=== PATIENT | female | born 1985 | race Caucasian/White ===

== ENCOUNTER 2018-01-17 22:53 | Emergency (ER) | payer OTHER ==
[~2018-01-17] VITALS: Ht 165.1 cm; Wt 108.9 kg
[~2018-01-17 22:53] MED LIST: AMOXICILLIN875 MG PO; ARMOUR THYROID15 M1; BACTRIM DS TAB1 EACH PO; EXCEDRIN ASA F1 EAC1; IBUPROFEN 800800 M1 PO; IBUPROFEN 800800 MG PO; MEDROL DOSPAK21 TA1 PO; NAPROSYN500 MG PO; NOHOMEMEDICATIONS; OSELB75 PO; PERCOCET 5-3251 EACH PO; PHENERGAN25 M2 RE; PROMETHAZINE12.5 M1 PO; TRAMADOL 50 MG50 MG PO; ULTRAM 50MG TAB50 MG PO; ULTRAM50 MG PO; VALIUM5 MG PO; VENTOLIN HFA 1818 GM INH; ZPAK PO
[2018-01-17] MEDS ORDERED: ADVAIR HFA 230M12 GM INH (23:15)
[2018-01-17 23:31] LABS: ABSOLUTE LYMPHOCYTES 1.2 thou/uL (0.8-5.3); ABSOLUTE MONOCYTES 0.4 thou/uL (0.0-1.2); ABSOLUTE NEUTROPHILS 4.1 thou/uL (1.6-8.1); BASOPHILS 0.7 %; EOSINOPHILS 0.6 %; HEMATOCRIT 39.5 % (37.0-47.0); HEMOGLOBIN 12.9 gm/dL (12.0-15.0); MCH 27.9 pg (26.0-34.0); MCHC 32.6 g/dL (28.0-37.0); MCV 85.5 fL (80.0-100.0); MONOCYTES 6.3 %; MPV 7.8 fl. (7.2-11.1); NUCLEATED RBCS 0 /100WBC; PLATELET COUNT* 327 thou/uL (150-400); POLYS 71.4 %; RBC 4.62 mil/uL (4.20-5.00); RDW-CV 13.2 % (10.5-14.5); WBC 5.8 thou/uL (4.0-11.0)
[2018-01-17 23:35] LABS: AMP/METHAMP Negative (Negative); BARBITURATES Negative (Negative); BENZODIAZEPINES Negative (Negative); COCAINE Negative (Negative); METHADONE Negative (Negative); OPIATES Negative (Negative); PCP Negative (Negative); THC Negative (Negative); URINE BILIRUBIN NEGATIVE (Negative); URINE BLOOD 3+ (Negative); URINE CLARITY SL CLOUDY; URINE COLOR YELLOW; URINE GLUCOSE-RANDOM NEGATIVE (Negative); URINE KETONES TRACE (Negative); URINE LEUKOCYTES-REFLEX NEGATIVE (Negative); URINE NITRITE-REFLEX NEGATIVE (Negative); URINE PROTEIN TRACE (Negative); URINE SPECIFIC GRAVITY >= 1.030 (1.005-1.030); URINE UROBILINOGEN 0.2 E.U./dl (0.2-1.0)
[2018-01-17 23:39] LABS: CALCIUM 8.5 mg/dL (8.5-10.1); CREATININE 0.6 mg/dL (0.6-1.3); POTASSIUM 3.4 mmol/L (3.5-5.1)
[2018-01-17 23:44] LABS: ALBUMIN 3.3 g/dL (3.4-5.0); TOTAL BILIRUBIN 0.2 mg/dL (<0.1-1.0); TOTAL PROTEIN 7.9 g/dL (6.4-8.2)
[2018-01-18 00:02] LABS: ACETAMINOPHEN < 2 ug/mL (10-30); ALCOHOL 170 mg/dL (<10); SALICYLATE < 2.8 mg/dL (2.8-20.0)
[2018-01-18 00:41] LABS: CASTS None Seen /LPF (None Seen); SQUAMOUS 4-10 Moderate /LPF (0-3)
[2018-01-18 00:42] LABS: CRYSTALS None Seen /LPF (None Seen); URINE RBC >20 Many /HPF (0-2); URINE WBC-REFLEX 0-5 Rare /HPF (0-5)
[2018-01-18 02:15] VITALS: BP 115/73
== END 2018-01-18 02:20 | disposition home or self-care (01) ==
LOC: M.ERS 22:53
PROVIDERS: Emergency Medicine
DX: F10.129 Alcohol abuse with intoxication, unspecified (principal); Y90.6 Blood alcohol level of 120-199 mg/100 ml; R41.82 Altered mental status, unspecified; E03.9 Hypothyroidism, unspecified; G43.909 Migraine, unspecified, not intractable, without status migrainosus; Z88.5 Allergy status to narcotic agent

== ENCOUNTER → 2019-08-17 | Outpatient (CLI) | payer OTHER, MEDICAID ==
[~2019-08-17] MED LIST changes: +ADVAIR HFA 230M12 GM INH
== END ==
LOC: M.RAD 08-13 12:04
DX: N60.01 Solitary cyst of right breast (principal)

== ENCOUNTER 2020-04-03 17:18 | Emergency (ER) | payer OTHER, MEDICAID ==
[~2020-04-03] VITALS: Ht 157.5 cm; Wt 88.5 kg
[2020-04-03] MEDS ORDERED: METFORMIN HCL500 M3 (17:31)
[2020-04-03] MEDS ORDERED: LEVO-T50 MCG PO (17:31)
[2020-04-03 18:03] LABS: URINE BILIRUBIN NEGATIVE (Negative); URINE BLOOD 3+ (Negative); URINE COLOR YELLOW; URINE GLUCOSE-RANDOM NEGATIVE (Negative); URINE KETONES NEGATIVE (Negative); URINE NITRITE-REFLEX NEGATIVE (Negative); URINE PROTEIN 2+ (Negative); URINE SPECIFIC GRAVITY 1.025 (1.005-1.030); URINE UROBILINOGEN 0.2 E.U./dl (0.2-1.0)
[2020-04-03 18:05] LABS: URINE CLARITY CLOUDY; URINE LEUKOCYTES-REFLEX 3+ (Negative)
[2020-04-03 18:11] LABS: BACTERIA-REFLEX >30 Many /HPF (None Seen); CASTS None Seen /LPF (None Seen); CRYSTALS None Seen /LPF (None Seen); SQUAMOUS NONE SEEN /LPF (0-3); URINE RBC >20 Many /HPF (0-2); URINE WBC-REFLEX >25 Many /HPF (0-5)
[2020-04-03] MEDS ORDERED: MACRODANTIN100 MG PO (18:18)
[2020-04-03] MEDS ORDERED: PYRIDIUM100 M1 PO (18:19)
[2020-04-03 18:24] VITALS: BP 145/70
== END 2020-04-03 18:25 | disposition home or self-care (01) ==
LOC: M.ERS 17:18
PROVIDERS: Nurse Practitioner Family
DX: N39.0 Urinary tract infection, site not specified (principal); G43.909 Migraine, unspecified, not intractable, without status migrainosus; E03.9 Hypothyroidism, unspecified; Z98.890 Other specified postprocedural states; Z88.5 Allergy status to narcotic agent